=== PATIENT | male | born 1970 | race Caucasian/White ===

== ENCOUNTER 2018-08-17 18:16 | Inpatient (IN) | payer OTHER ==
[~2018-08-17] VITALS: Ht 167.6 cm; Wt 79.7 kg
[~2018-08-17 18:16] MED LIST: FLEXERIL PO
[2018-08-17 18:27] VITALS: BP 134/81
[2018-08-17 18:59] LABS: URINE BLOOD 3+ (Negative); URINE COLOR YELLOW; URINE GLUCOSE-RANDOM NEGATIVE (Negative); URINE KETONES 2+ (Negative); URINE NITRITE-REFLEX NEGATIVE (Negative); URINE PROTEIN NEGATIVE (Negative); URINE SPECIFIC GRAVITY >= 1.030 (1.005-1.030)
[2018-08-17 19:00] LABS: ICTOTEST (BILI CONFIRMATORY) Negative (Negative); URINE BILIRUBIN 1+ (Negative); URINE CLARITY HAZY; URINE LEUKOCYTES-REFLEX 2+ (Negative)
[2018-08-17 19:06] LABS: BACTERIA-REFLEX None Seen /HPF (None Seen); CASTS None Seen /LPF (None Seen); CRYSTALS None Seen /LPF (None Seen); SQUAMOUS 0-3 Few /LPF (0-3); URINE RBC 0-2 Rare /HPF (0-2); URINE WBC-REFLEX None Seen /HPF (0-5)
[2018-08-17 20:02] LABS: ABSOLUTE BASOPHILS 0.1 thou/uL (0.0-0.2); ABSOLUTE LYMPHOCYTES 2.2 thou/uL (0.8-5.3); ABSOLUTE MONOCYTES 1.5 thou/uL (0.0-1.2); ABSOLUTE NEUTROPHILS 14.4 thou/uL (1.6-8.1); BASOPHILS 0.5 %; EOSINOPHILS 0.2 %; HEMATOCRIT 41.6 % (42.0-52.0); HEMOGLOBIN 13.7 gm/dL (14.0-18.0); LYMPHOCYTES 11.9 %; MCH 30.1 pg (26.0-34.0); MCHC 32.9 g/dL (28.0-37.0); MCV 91.4 fL (80.0-100.0); MONOCYTES 8.2 %; MPV 7.6 fl. (7.2-11.1); NUCLEATED RBCS 0 /100WBC; PLATELET COUNT* 258 thou/uL (150-400); POLYS 79.2 %; RBC 4.55 mil/uL (4.50-6.00); RDW-CV 13.4 % (10.5-14.5); WBC 18.1 thou/uL (4.0-11.0)
[2018-08-17 20:10] LABS: CALCIUM 8.2 mg/dL (8.5-10.1); CREATININE 0.9 mg/dL (0.6-1.3); POTASSIUM 3.8 mmol/L (3.5-5.1)
[2018-08-17 20:14] LABS: ALBUMIN 3.3 g/dL (3.4-5.0); TOTAL BILIRUBIN 1.1 mg/dL (<0.1-1.0); TOTAL PROTEIN 7.9 g/dL (6.4-8.2)
[2018-08-17 21:58] VITALS: BP 134/83
[2018-08-17 22:12] VITALS: BP 123/84
--- NOTE | 2018-08-18 05:35 | NUR ---
REPORT RECIEVED FROM ER. PT ADMITTED TO ROOM 307. PT ORIENTED TO ROOM, CALL LIGHT SHOWN, FALL AGREEMENT WENT OVER, PT STATED UNDERSTANDING. ASSESSMENT DOCUMETNED. IV PATENT, FLUIDS INFUSING. PAIN MEDS GIVEN PER E-MAR. PT STATES HE GET PAIN WITH URINATION AND WILL HURT AFTER URINATION ALSO. WILL CONTINUE WITH PLAN OF CARE.
[2018-08-18 07:50] VITALS: BP 124/86
--- NOTE | 2018-08-18 10:46 | NUR ---
Pt to dc home today. SW provided referral/resource list for pt to find a primary care physician. No other needs expressed.
[2018-08-18] MEDS ORDERED: FLOMAX0.4 MG PO (10:51)
[2018-08-18] MEDS ORDERED: PHENAZOPYRIDIN100 M1 PO (10:52)
[2018-08-18] MEDS ORDERED: CIPRO500 MG PO (10:53)
[2018-08-18 11:30] VITALS: BP 124/86
--- NOTE | 2018-08-18 12:22 | NUR ---
PATIENT'S IV REMOVED. PATIENT AND SPOUSE GIVEN DISCHARGE INSTRUCTIONS AND PRESCRIPTIONS. WORK RELEASE OBTAINED FROM PHYSICIAN PER PATIENT REQUEST. PATIENT AND SPOUSE VERBALIZED UNDERSTANDING IN REGARDS TO FOLLOW UP APPOINTMENTS, NEW MEDICATIONS, AND S/S TO CALL PHYSICIAN. PATIENT DISCHARGED VIA WHEELCHAIR TO HOME WITH ALL BELONGINGS. DISCHARGED OFF NURSING UNIT WITH NURSING STAFF AND SPOUSE.
== END 2018-08-18 12:24 | disposition home or self-care (01) | DRG 690 ==
LOC: M.ERS 18:16 → M.3W 21:24 → M.TBA-ER 21:24 → M.3W 22:05
PROVIDERS: Physician Assistant; ADMIT Internal Medicine
DX: N30.00 Acute cystitis without hematuria (principal); N41.0 Acute prostatitis; Z80.0 Family history of malignant neoplasm of digestive organs; Z28.21 Immunization not carried out because of patient refusal